=== PATIENT | female | born 1970 | race Caucasian/White ===

== ENCOUNTER 2022-11-07 20:20 | Emergency (ER) | payer BC ==
[~2022-11-07] VITALS: Ht 165.1 cm; Wt 90.7 kg
[2022-11-07 20:29] VITALS: BP_SYST 170
--- NOTE | 2022-11-07 20:37 | NUR ---
Patient triaged and placed in waiting room. VS checked and patient appears in no acute distress at this time. Accompanied by , awaiting available bed, and MD notified of need for MSE.
[2022-11-07 22:02] LABS: BASOPHILS # (AUTO) 0.1 K/uL (0.0-0.2); BASOPHILS % (AUTO) 0.9 % (0.0-2.0); EOSINOPHILS # (AUTO) 0.3 K/uL (0.0-0.4); EOSINOPHILS % (AUTO) 3.9 % (0.0-4.0); HEMATOCRIT 38.5 % (36-48); HEMOGLOBIN 12.9 g/dL (12.0-16.0); LYMPHOCYTES # (AUTO) 2.7 K/uL (1.0-5.5); LYMPHOCYTES % (AUTO) 41.5 % (20.5-51.5); MEAN CORPUSCULAR HEMOGLOBIN 30 pg (27-31); MEAN CORPUSCULAR HGB CONC 33 % (32-36); MEAN CORPUSCULAR VOLUME 88 fL (79.0-98.0); MONOCYTES # (AUTO) 0.5 K/uL (0.0-1.0); MONOCYTES % (AUTO) 7.7 % (1.7-9.3); PLATELET COUNT (AUTO) 224 K/uL (130-430); RED BLOOD CELL COUNT(AUTO) 4.37 MIL/uL (4.2-6.2); RED CELL DISTRIBUTION WIDTH 13.7 % (9.0-15.0); WHITE BLOOD COUNT (AUTO) 6.5 K/uL (4.8-10.8)
[2022-11-07 22:19] LABS: ANION GAP 8 (5-15); CALCIUM 9.3 mg/dL (8.4-11.0); CHLORIDE 103 mmol/L (98-107); GLUCOSE 89 mg/dL (70-99); UREA NITROGEN, BLOOD 21 mg/dL (8-21)
--- NOTE | 2022-11-07 22:20 | NUR ---
Patient to ER bed 05 to gown for evaluation. Side rails up. Report given to RN.
[2022-11-07 22:23] LABS: ACETONE, SERUM NEGATIVE (NEGATIVE)
[2022-11-07 22:24] LABS: GFR AFRICAN AMERICAN 114 mL/min (>90); PROTHROMBIN TIME 9.9 SECS (9.5-12.5)
[2022-11-07 22:26] LABS: ALANINE AMINOTRANSFERASE 17 U/L (12-78); ALBUMIN 4.1 g/dL (3.4-4.8); ASPARTATE AMINOTRANSFERASE 16 U/L (10-37); TOTAL BILIRUBIN 0.8 mg/dL (0.0-1.0)
--- NOTE | 2022-11-07 23:04 | NUR ---
Patient resting in bed no s/s of any distress noted, informed of plan of care, MD at bedside for exam. patient was placed into gown and on monitir, bedside EKG done for MD review, patient off unit to radiology via gurney. urine has been collected and sent to lab.
[2022-11-07 23:27] LABS: THYROID STIMULATING HORMONE 2.17 uIu/mL (0.34-4.82)
[2022-11-07 23:29] LABS: C-REACTIVE PROTEIN QUANT < 0.2 mg/dL (0-0.5)
[2022-11-07 23:43] LABS: BILIRUBIN,URINE NEGATIVE (NEGATIVE); BLOOD, URINE NEGATIVE (NEGATIVE); CLARITY/URINE CLEAR (CLEAR); COLOR,URINE YELLOW (YELLOW); GLUCOSE,URINE NEGATIVE (NEGATIVE); KETONES,URINE NEGATIVE (NEGATIVE); LEUKOCYTE ESTERASE ,URINE TRACE (NEGATIVE); NITRITE, URINE NEGATIVE (NEGATIVE); PH,URINE 5.5 (5.0-8.0); PROTEIN URINE NEGATIVE (NEGATIVE); UROBILINOGEN,URINE 0.2 (0.2-1.0)
--- NOTE | 2022-11-07 23:43 | NUR ---
Returned from radiology department, orthostatic vs: lying-121/74-73-18-97% sitting-141/83-76-16-98% standing-147/95-78-16-98% MD aware. No voiced c/o at this time.
[2022-11-08 00:19] LABS: BACTERIA,URINE MANY /HPF (None Seen); RBC,URINE 0-3 /HPF (0-3); WBC,URINE 0-3 /HPF (0-3)
[2022-11-08 00:20] LABS: MUCUS,URINE None Seen /LPF (None Seen)
[2022-11-08 01:17] VITALS: BP_SYST 129
[2022-11-08] MEDS ORDERED: CEPH250C PO (01:22)
--- NOTE | 2022-11-08 01:29 | NUR ---
MD at bedside talking to patient, aware she will be discharged home, remains stable.
== END 2022-11-08 01:44 | disposition home or self-care (01) ==
LOC: SED 20:20
DX: N39.0 Urinary tract infection, site not specified (principal); R53.1 Weakness; R42 Dizziness and giddiness; R07.9 Chest pain, unspecified; R06.02 Shortness of breath; Z91.041 Radiographic dye allergy status; Z91.013 Allergy to seafood; Z79.899 Other long term (current) drug therapy
CPT/HCPCS: 36415; 70450-TC; 71045; 76376; 80053; 81000; 82009; 82550; 83605; 84443; 84484; 85025; 85610-TC; 85651-TC; 85730-TC; 86140; 99285